=== PATIENT | male | born 1935 | race Caucasian/White ===

== ENCOUNTER 2016-09-14 11:02 | Emergency (ER) | payer MEDICARE, OTHER ==
[2016-09-14] MEDS ORDERED: Sodium Chloride 0.9% 10 ML Syringe FLUSH PRN (11:57)
--- NOTE | 2016-09-14 14:09 | EDM.PDOC ---
ED HISTORY OF PRESENT ILLNESS - General Chief Complaint: Chest Pain Stated Complaint: rapid heart rate Time Seen by Provider: 09/14/16 12:00 Source of Information: Reports: Patient History Limitations: Reports: No limitations - History of Present Illness INITIAL COMMENTS - FREE TEXT/NARRATIVE: Patient has complaints of palpitations this morning. He does have a history of a-fib with multiple cardioversions and an ablation 4 years ago that was effective. EP doctor was Dr. Vazquez in [place] at [place]. He had similar complaints about 1 month ago and had an echo performed. Zio monitor applied which showed some runs of svt as well as v-tach. Ekg's today show alternating sinus rhythm and sinus with pvc's. No complaints of chest pain, SOB that is different than usual - he does have COPD. No nausea, vomiting, headaches, blurry vision. No difficulty with voiding or bowel movements. Symptom Onset Date: 09/14/16 Symptom Onset Time: 08:00 Timing/Duration: Reports: Sudden onset Severity: mild Location, General: Reports: chest Quality: Reports: Same as previous episode, Other (palpitations) Improves with: Reports: None, Other (rhythms convert back and forth from sinus to sinus with pvc's) Worsens with: Reports: None - Related Data Allergies/ADRs: Allergies Allergy/AdvReac Type Severity Reaction Status Date / Time amoxicillin [From Augmentin] AdvReac Diarrhea Verified 09/14/16 11:34 clavulanic acid AdvReac Diarrhea Verified 09/14/16 11:34 [From Augmentin] sulfamethoxazole AdvReac Chills Verified 09/14/16 11:34 [From Bactrim] trimethoprim [From Bactrim] AdvReac Chills Verified 09/14/16 11:34 Home Meds: Home Meds Krill/Om-3/DHA/EPA/Phospho/Ast [[place]-3 Krill Oil 1,000 mg] 1 cap PO DAILY 01/19 [History] Aspirin [Low Dose Aspirin EC] 81 mg PO DAILY 09/14/16 [History] Past Medical History Cardiovascular History: Reports: Afib, Heart Failure, Other (see below) Other Cardiovascular History: MITRAL INSUFFICIENCY. ATRIAL FLUTTER Respiratory History: Reports: None Gastrointestinal History: Reports: Diverticulosis, Other (see below) Other Gastrointestinal History: DIARRHEA IN OCTOBER 2015 FOR 3 WEEKS Genitourinary History: Reports: Prostate disorder, Other (see below) Other Genitourinary History: HYPOGONADISM Musculoskeletal History: Reports: Arthritis Psychiatric History: Reports: None Endocrine/Metabolic History: Reports: None Hematologic History: Reports: Anemia Immunologic History: Reports: None Oncologic (Cancer) History: Reports: Hodgkin's Lymphoma, Lymphoma Other Oncologic History: 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), HAD CHEMO FOR IT Dermatologic History: Reports: None - Past Surgical History HEENT Surgical History: Reports: Cataract surgery Cardiovascular Surgical History: Reports: Cardiac Ablation, Other (see below) Other Cardiovascular Surgeries/Procedures: Ablation 4-5 years ago - Dr. Vazquez GI Surgical History: Reports: None Endocrine Surgical History: Reports: None Musculoskeletal Surgical History: Reports: Other (see below) Other Musculoskeletal Surgeries/Procedures:: R HIP REPAIR FOR FX Oncologic Surgical History: Reports: None Social & Family History - Tobacco Use Smoking Status *Q: Never Smoker Second Hand Smoke Exposure: Yes - Caffeine Use Caffeine Use: Reports: Coffee - Recreational Drug Use Recreational Drug Use: No Drug Use in Last 12 Months: No ED ROS GENERAL - Review of Systems Review Of Systems: See Below Constitutional: Reports: no symptoms HEENT: Reports: No symptoms Respiratory: Reports: No Symptoms Cardiovascular: Reports: Palpitations Endocrine: Reports: no symptoms GI/Abdominal: Reports: No symptoms : Reports: no symptoms Musculoskeletal: Reports: no symptoms Skin: Reports: no symptoms Neurological: Reports: No Symptoms Psychiatric: Reports: No symptoms Hematologic/Lymphatic: Reports: no symptoms Immunologic: Reports: no symptoms ED EXAM, GENERAL - Physical Exam Exam: See Below Exam Limited By: No limitations General Appearance: alert, WD/WN, no apparent distress Eye Exam: bilateral eye: EOMI, PERRL Ears: normal TMs Head: atraumatic, normocephalic Neck: normal inspection Respiratory/Chest: no respiratory distress, lungs clear, normal breath sounds Cardiovascular: normal peripheral pulses, regular rate, rhythm GI/Abdominal: normal bowel sounds, soft, non tender Back Exam: normal inspection Extremities: normal inspection, normal range of motion, normal capillary refill Neurological: alert, oriented, CN II-XII intact, normal cognition, normal gait, normal reflexes, no motor/sensory deficits Psychiatric: normal affect, normal mood Skin Exam: Warm, Dry, Intact Lymphatic: no adenopathy Course - Vital Signs Last Recorded V/S: Last Vital Signs Temp 36.2 C 09/14/16 11:24 Pulse 82 09/14/16 11:24 Resp 18 09/14/16 11:24 BP 129/72 09/14/16 11:24 Pulse Ox 100 09/14/16 11:24 Orthostatic Blood Pressure [ 122/66 Standing] Orthostatic Blood Pressure [ 110/63 Sitting] Orthostatic Blood Pressure [ 136/74 Supine] - Orders/Labs/Meds Orders: Active Orders 24 hr Category Date Time Status Cardiac Monitoring [RC] . DIRECTED Care 09/14/16 11:57 Active EKG 12 Lead [EKG Documentation Completion] [RC] ROUTINE Care 09/14/16 13:51 Ordered EKG Documentation Completion [RC] STAT Care 09/14/16 11:57 Active Chest 2V [CR] Stat Exams 09/14/16 11:58 Taken Sodium Chloride 0.9% [Saline Flush] Med 09/14/16 11:57 Active 10 ml FLUSH ASDIRECTED PRN Saline Lock Insert [OM.PC] Stat Oth 09/14/16 11:57 Ordered Medication Orders Sodium Chloride (Saline Flush) 10 ml FLUSH ASDIRECTED PRN PRN Reason: Keep Vein Open Labs: Laboratory Tests 09/14/16 09/14/16 09/14/16 Range/Units 11:35 11:35 11:35 WBC 12.6 H (4.0-10.0) x10^3/uL RBC 4.11 L (4.5-6.0) x10^6/uL Hgb 12.6 L (14.0-18.0) g/dL Hct 38.7 L (40.0-52.0) % MCV 94.2 H (78.0-93.0) fL MCH 30.7 (26.0-32.0) pg MCHC 32.6 (32.0-36.0) g/dL RDW Coeff of [place] 13.3 (10.0-15.0) % Plt Count 268 (130-400) x10^3/uL Neut % (Auto) 89.4 H (50.0-80.0) % Lymph % (Auto) 3.5 L (25.0-50.0) % [place] % (Auto) 6.1 (2.0-11.0) % Eos % (Auto) 0.8 (0.0-4.0) % Baso % (Auto) 0.2 (0.2-1.2) % PT (10.0-12.8) SEC INR (2.0-3.5) APTT 23.3 L (24.0-36.0) SEC Sodium 143 (136-145) mmol/L Potassium 4.0 (3.5-5.1) mmol/L Chloride 103 (98-107) mmol/L Carbon Dioxide 31 (21-32) mmol/L BUN 28 H (7-18) mg/dL Creatinine 1.3 (0.70-1.30) mg/dL Est Cr Clr Drug Dosing 38.43 mL/min Estimated GFR (MDRD) 53 Glucose 139 H (74-106) mg/dL Calcium 9.3 (8.5-10.1) mg/dL Corrected Calcium 9.14 (8.5-10.1) mg/dL Magnesium (1.8-2.4) mg/dL Total Bilirubin 0.6 (0.2-1.0) mg/dL AST 38 H (15-37) U/L ALT 45 (16-63) U/L Alkaline Phosphatase 74 (46-116) U/L Creatine Kinase 110 (39-308) U/L Creatine Kinase Index 1.0 (0.0-4.0) % CK-MB (CK-2) 1.1 (0.0-3.6) ng/mL Troponin I (<=0.056) ng/mL B-Natriuretic Peptide 798 H (<=450) pg/mL Total Protein 7.9 (6.4-8.2) g/dL Albumin 4.2 (3.4-5.0) g/dL Globulin 3.7 Albumin/Globulin Ratio 1.14 09/14/16 09/14/16 09/14/16 Range/Units 11:35 11:35 11:35 WBC (4.0-10.0) x10^3/uL RBC (4.5-6.0) x10^6/uL Hgb (14.0-18.0) g/dL Hct (40.0-52.0) % MCV (78.0-93.0) fL MCH (26.0-32.0) pg MCHC (32.0-36.0) g/dL RDW Coeff of [place] (10.0-15.0) % Plt Count (130-400) x10^3/uL Neut % (Auto) (50.0-80.0) % Lymph % (Auto) (25.0-50.0) % [place] % (Auto) (2.0-11.0) % Eos % (Auto) (0.0-4.0) % Baso % (Auto) (0.2-1.2) % PT 11.6 (10.0-12.8) SEC INR 1.0 L (2.0-3.5) APTT (24.0-36.0) SEC Sodium (136-145) mmol/L Potassium (3.5-5.1) mmol/L Chloride (98-107) mmol/L Carbon Dioxide (21-32) mmol/L BUN (7-18) mg/dL Creatinine (0.70-1.30) mg/dL Est Cr Clr Drug Dosing mL/min Estimated GFR (MDRD) Glucose (74-106) mg/dL Calcium (8.5-10.1) mg/dL Corrected Calcium (8.5-10.1) mg/dL Magnesium 1.9 (1.8-2.4) mg/dL Total Bilirubin (0.2-1.0) mg/dL AST (15-37) U/L ALT (16-63) U/L Alkaline Phosphatase (46-116) U/L Creatine Kinase (39-308) U/L Creatine Kinase Index (0.0-4.0) % CK-MB (CK-2) (0.0-3.6) ng/mL Troponin I < 0.017 (<=0.056) ng/mL B-Natriuretic Peptide (<=450) pg/mL Total Protein (6.4-8.2) g/dL Albumin (3.4-5.0) g/dL Globulin Albumin/Globulin Ratio Meds: Medications Generic Name Dose Route Start Last Admin Trade Name Freq PRN Reason Stop Dose Admin Sodium Chloride 10 ml 09/14/16 11:57 Saline Flush FLUSH ASDIRECTED PRN Keep Vein Open - Re-Assessments/Exams Free Text/Narrative Re-Assessment/Exam: 09/14/16 14:28 I did review x-ray which was negative for cardio pathology. Does have COPD on x -ray. Discussed case and EKG's with Dr. Erickson from [place]. He advised outpatient follow up and no new prescriptions. Will inform his primary provider of this. Departure - Departure Time of Disposition: 14:10 Disposition: Home, Self-Care 01 Condition: good Clinical Impression: Arrhythmia, ventricular Instructions: Premature Ventricular Contraction Forms: ED Department Discharge Additional Instructions: I did relay your symptoms with Dr. Erickson, the stone carriage operator manufacturing clerk. He recommended outpatient follow up with cardiology and did NOT recommend medication initiation. Follow up with Dr. Springer and cardiology. Of course call us with any questions or concerns. - Problem List & Annotations (1) Arrhythmia, ventricular SNOMED Code(s): 92125283, 282543071 Code(s): I49.9 - CARDIAC ARRHYTHMIA, UNSPECIFIED Status: Acute Priority: Medium Current Visit: Yes - Problem List Review Problem List Initiated/Reviewed/Updated: Yes - My Orders Last 24 Hours: My Active Orders 09/14/16 11:57 Cardiac Monitoring [RC] . DIRECTED EKG Documentation Completion [RC] STAT Sodium Chloride 0.9% [Saline Flush] 10 ml FLUSH ASDIRECTED PRN Saline Lock Insert [OM.PC] Stat 09/14/16 11:58 Chest 2V [CR] Stat 09/14/16 13:51 EKG 12 Lead [EKG Documentation Completion] [RC] ROUTINE - Assessment/Plan Last 24 Hours: My Active Orders 09/14/16 11:57 Cardiac Monitoring [RC] . DIRECTED EKG Documentation Completion [RC] STAT Sodium Chloride 0.9% [Saline Flush] 10 ml FLUSH ASDIRECTED PRN Saline Lock Insert [OM.PC] Stat 09/14/16 11:58 Chest 2V [CR] Stat 09/14/16 13:51 EKG 12 Lead [EKG Documentation Completion] [RC] ROUTINE Assessment:: ventricular arrhythmia Plan: I did relay your symptoms with Dr. Erickson, the stone carriage operator manufacturing clerk. He recommended outpatient follow up with cardiology and did NOT recommend medication initiation. Follow up with Dr. Springer and cardiology. Of course call us with any questions or concerns.
[2016-09-14 15:20] VITALS: BP 136/78
== END 2016-09-14 14:21 | disposition home or self-care (01) ==
LOC: VM.ED 11:02
DX: I49.9 Cardiac arrhythmia, unspecified (principal); I48.91 Unspecified atrial fibrillation; D64.9 Anemia, unspecified; Z88.1 Allergy status to other antibiotic agents; Z88.8 Allergy status to other drugs, medicaments and biological substances
CPT/HCPCS: 36415; 71020; 80053; 82550; 82553; 83735; 83880; 84484; 85025; 85610; 85730; 93005; 99284-GF; 99285

== ENCOUNTER 2019-03-14 10:53 | Inpatient (IN) | payer MEDICARE, OTHER ==
--- NOTE | 2019-03-14 12:02 | PCM.HP.2 ---
H&P History of Present Illness - General Date of Service: 03/14/19 Admit Problem/Dx: Admission Diagnosis/Problem Admission Diagnosis/Problem Aspiration pneumonia Source of Information: Patient, Family () History Limitations: Reports: No Limitations - History of Present Illness Initial Comments - Free Text/Narative: Mr. Vanegas is an 83 yo male who presented to clinic today for evaluation of a cough x 4-5 days. Cough is productive of greenish sputum and is associated with chest pain with coughing. He has had some nasal congestion and pressure. He has also felt subjectively feverish but has not checked his temperature at home. He has not been short of breath. He has not been eating or drinking well at all and has had significant generalized weakness. He has not had any falls. His also notes that he has had episodes of confusion as well. He has talked about things from the remote past and has been confused about which season it is. He states that he has had pneumonia before and these symptoms are similar. His was also recently sick with pneumonia. His does note that he has been having more trouble with swallowing again over the past few weeks. He has been evaluated for swallowing issues in the past but those essentially were self resolving. He had been doing well for quite some time but has had more trouble again the past few weeks. He has been choking/coughing on liquids primarily. - Related Data Allergies/Adverse Reactions: Allergies Allergy/AdvReac Type Severity Reaction Status Date / Time amoxicillin [From Augmentin] AdvReac Diarrhea Verified 09/14/16 11:34 clavulanic acid AdvReac Diarrhea Verified 09/14/16 11:34 [From Augmentin] sulfamethoxazole AdvReac Chills Verified 09/14/16 11:34 [From Bactrim] trimethoprim [From Bactrim] AdvReac Chills Verified 09/14/16 11:34 Home Medications: Home Meds Aspirin [Low Dose Aspirin EC] 81 mg PO DAILY 09/14/16 [History] Krill/[place]-3/Dha/Epa/Lipids [Krill Oil 300 mg Softgel] 1 cap PO DAILY 03/14/19 [History] Past Medical History HEENT History: Reports: None Cardiovascular History: Reports: Afib, Heart Failure, Other (See Below) Other Cardiovascular History: MITRAL INSUFFICIENCY. ATRIAL FLUTTER Respiratory History: Reports: None Gastrointestinal History: Reports: Diverticulosis, Other (See Below) Other Gastrointestinal History: DIARRHEA IN OCTOBER 2015 FOR 3 WEEKS Genitourinary History: Reports: Prostate Disorder, Other (See Below) Other Genitourinary History: HYPOGONADISM Musculoskeletal History: Reports: Arthritis Neurological History: Reports: Neuropathy, Peripheral Psychiatric History: Reports: None Endocrine/Metabolic History: Reports: None Hematologic History: Reports: Anemia Immunologic History: Reports: None Oncologic (Cancer) History: Reports: Hodgkin's Lymphoma, Lymphoma Other Oncologic History: 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), HAD CHEMO FOR IT Dermatologic History: Reports: None - Past Surgical History HEENT Surgical History: Reports: Cataract Surgery Cardiovascular Surgical History: Reports: Cardiac Ablation, Other (See Below) Endocrine Surgical History: Reports: None Musculoskeletal Surgical History: Reports: Other (See Below) Oncologic Surgical History: Reports: None Social & Family History - Family History Oncologic: Reports: Prostate, Other (See Below) (gastric) - Tobacco Use Smoking Status *Q: Never Smoker Second Hand Smoke Exposure: No - Caffeine Use Caffeine Use: Reports: Coffee - Alcohol Use Alcohol Use History: No Alcohol Use Frequency: Rarely (on holidays) - Recreational Drug Use Recreational Drug Use: No - Living Situation & Occupation Living situation: Reports: , with Significant Other 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 Denies: Shortness of Breath Cardiovascular: Reports: No Symptoms Gastrointestinal: Reports: No Symptoms Genitourinary: Reports: No Symptoms Musculoskeletal: Reports: No Symptoms Skin: Reports: No Symptoms Psychiatric: Reports: Confusion Neurological: Reports: Confusion Exam - Exam Exam: See Below - Vital Signs Vital Signs: Last Vital Signs Temp 36.6 C 03/14/19 11:07 Pulse 91 03/14/19 11:07 Resp 16 03/14/19 11:07 BP 130/68 03/14/19 11:07 Pulse Ox 94 L 03/14/19 11:07 Weight: 63.639 kg - Exam General: Alert, Oriented, Cooperative HEENT: Conjunctiva Clear, EACs Clear, Mucosa Moist & [place], Posterior Pharynx Clear, Pupils Equal, Pupils Reactive, TMs Clear Neck: Supple, Trachea Midline. No: Lymphadenopathy, Thyromegaly Lungs: Clear to Auscultation (everywhere except the right lower lobe), Normal Respiratory Effort, Crackles (right lower lobe) Cardiovascular: Regular Rate, Regular Rhythm, Normal S1, Normal S2 GI/Abdominal Exam: Normal Bowel Sounds, Soft, Non-Tender, No Organomegaly, No Distention, No Mass Extremities: Non-Tender, No Pedal Edema, Normal Capillary Refill Peripheral Pulses: 2+: Radial (L), Radial (R) Skin: Warm, Dry, Intact - Problem List (1) Sepsis SNOMED Code(s): 53769718 ICD Code: A41.9 - SEPSIS, UNSPECIFIED ORGANISM Status: Acute Current Visit: Yes Qualifiers: Sepsis type: sepsis due to unspecified organism Sepsis acute organ dysfunction status: without acute organ dysfunction Qualified Code(s): A41.9 - Sepsis, unspecified organism (2) Aspiration pneumonia SNOMED Code(s): 124417386 ICD Code: J69.0 - PNEUMONITIS DUE TO INHALATION OF FOOD AND VOMIT Status: Acute Current Visit: Yes Qualifiers: Aspiration pneumonia type: due to gastric secretions Laterality: right Lung location: lower lobe of lung Qualified Code(s): J69.0 - Pneumonitis due to inhalation of food and vomit (3) Dysphagia SNOMED Code(s): 76858811, 486571373 ICD Code: R13.10 - DYSPHAGIA, UNSPECIFIED Status: Chronic Current Visit: Yes Qualifiers: Dysphagia type: pharyngoesophageal phase Qualified Code(s): R13.14 - Dysphagia, pharyngoesophageal phase (4) Peripheral neuropathy SNOMED Code(s): 135838147 ICD Code: G62.9 - POLYNEUROPATHY, UNSPECIFIED Status: Chronic Current Visit: Yes Qualifiers: Peripheral neuropathy type: polyneuropathy, unspecified Qualified Code(s): G62.9 - Polyneuropathy, unspecified (5) Generalized weakness SNOMED Code(s): 61948729 ICD Code: R53.1 - WEAKNESS Status: Acute Current Visit: Yes Problem List Initiated/Reviewed/Updated: Yes Orders Last 24hrs: Active Orders 24 hr Category Date Time Status Patient Status [ADT] Routine ADT 03/14/19 11:26 Ordered Dietary Supplements [RC] BIDMEALS Care 03/14/19 11:25 Ordered Notify Provider Vital Signs [RC] ASDIRECTED Care 03/14/19 11:29 Ordered Oxygen Therapy [RC] PRN Care 03/14/19 11:26 Ordered VTE/DVT Education [RC] PER UNIT ROUTINE Care 03/14/19 11:26 Ordered Vital Signs [RC] Q4H Care 03/14/19 11:26 Ordered PT Evaluation and Treatment [CONS] Routine Cons 03/14/19 11:26 Ordered STONEWORKING BELT SANDER Evaluation and Treatment [CONS] Routine Cons 03/14/19 11:26 Ordered Nothing per Oral Now Diet [DIET] Diet 03/14/19 Lunch Ordered BASIC METABOLIC PANEL,BMP [CHEM] Routine Lab 03/15/19 05:11 Ordered CBC WITH AUTO DIFF [HEME] Routine Lab 03/15/19 05:11 Ordered Ampicillin/Sulbactam Na [Unasyn] Med 03/14/19 11:30 Ordered 1.5 gm IV Q6H Aspirin [Halfprin] Med 03/15/19 08:00 Ordered 81 mg PO DAILY Enoxaparin [Lovenox] Med 03/15/19 08:00 Ordered 40 mg SUBCUT DAILY Lactated Ringers @ 100 MLS/HR(1,000ml) Med 03/14/19 11:45 Ordered Lactated Ringers [Ringers, Lactated] 1,000 ml IV ASDIRECTED Resuscitation Status Routine Resus Stat 03/14/19 11:26 Ordered Medication Orders Ampicillin Sodium/Sulbactam Sodium (Unasyn) 1.5 gm IV Q6H AARON Aspirin (Halfprin) 81 mg PO DAILY AARON Enoxaparin Sodium (Lovenox) 40 mg SUBCUT DAILY AARON Lactated Ringer's (Ringers, Lactated) 1,000 mls @ 100 mls/hr IV ASDIRECTED [facility] Assessment/Plan Comment:: 83 yo male admitted with sepsis secondary to aspiration pneumonia. #1 Sepsis #2 Aspiration Pneumonia - No other s/s of infection and has clear pneumonia on x-ray as source of sepsis. - Meets sepsis criteria with tachycardia and leukocytosis. - Initial lactate normal. Will not repeat. - No bolus indicated in the absence of vital sign instability or JOSE ANTONIO. Will start LR @ 100 cc/hr. - Blood cultures pending. - Given the absence of any underlying lung history nor any healthcare exposures , will treat empirically with unasyn. - If worsening or not improving, will broaden to zosyn. - Note his amoxicillin and augmentin allergies but the reaction is diarrhea so is not a true allergy. - Recheck labs in the morning. #3 Dysphagia - Speech therapy evaluation ordered. - Given this is able to be performed in the next 1 hour, will keep him NPO until this is completed. Then his diet can be ordered as recommended by speech therapy. #4 Peripheral Neuropathy #5 Generalized Weakness - PT eval and treatment. Patient is admitted to acute status given his CURB-65 score of 3, his meeting sepsis criteria, and the associated expectation he will be admitted for at least 2 midnights for IV antibiotics. Will treat with Unasyn, IV fluids, and do speech and PT evaluations. Lovenox for VTE prophylaxis. Patient is DNR/DNI - discussed on admission. - Mortality Measure Prognosis:: Good
[2019-03-14] MEDS: Ampicillin/Sulbactam Na 1.5 GM Vial IV SCH ×3 (12:53→23:00)
[2019-03-14] MEDS: Lactated Ringers 1,000 ML IV SCH (13:33)
[2019-03-15] MEDS: Lactated Ringers 1,000 ML IV SCH (00:37)
[2019-03-15] MEDS: Ampicillin/Sulbactam Na 1.5 GM Vial IV SCH (04:48)
[2019-03-15 07:06] LABS: CHLORIDE,CL 100 mmol/L (54-184); SODIUM,NA 139 mmol/L (69-191)
[2019-03-15 07:08] LABS: ANION GAP 12.8 mmol/L (10-20)
[2019-03-15] MEDS: Enoxaparin 40 MG/0.4 ML Syringe SUBCUT SCH (08:13)
[2019-03-15] MEDS: Aspirin 81 MG Tab.EC PO SCH (08:14)
--- NOTE | 2019-03-15 08:28 | PCM.PN ---
- General Info Date of Service: 03/15/19 Subjective Update: 83 yo male hospital day #2 admitted with sepsis secondary to aspiration pneumonia. Patient is feeling slightly improved today. He is still coughing and his cough is still productive of thick, dark green sputum. His chest pain is improved. No shortness of breath or fever. His appetite is still poor but he anticipates this will improve. He is irritated by his urinary frequency with holding of his krill oil but is not otherwise concerned about this. - Review of Systems General: Reports: No Symptoms HEENT: Reports: No Symptoms Pulmonary: Reports: Pleuritic Chest Pain, Cough Cardiovascular: Reports: No Symptoms Gastrointestinal: Reports: Decreased Appetite Genitourinary: Reports: Frequency Musculoskeletal: Reports: No Symptoms Skin: Reports: No Symptoms - Patient Data Vitals - Most Recent: Last Vital Signs Temp 35.9 C 03/15/19 05:23 Pulse 87 03/15/19 05:23 Resp 20 03/15/19 05:23 BP 127/68 03/15/19 05:23 Pulse Ox 95 03/15/19 05:23 Weight - Most Recent: 63.639 kg I&O - Last 24 Hours: Intake & Output 03/14/19 03/15/19 03/15/19 22:59 06:59 14:59 Intake Total 816 1380 Output Total 100 900 Balance 716 480 Lab Results Last 24 Hours: Laboratory Results - last 24 hr 03/15/19 03/15/19 Range/Units 06:18 06:18 WBC 11.4 H (4.0-10.0) x10^3/uL RBC 3.56 L (4.5-6.0) x10^6/uL Hgb 10.9 L D (14.0-18.0) g/dL Hct 32.0 L (40.0-52.0) % MCV 89.9 D (78.0-93.0) fL MCH 30.6 (26.0-32.0) pg MCHC 34.1 (32.0-36.0) g/dL RDW Coeff of [place] 12.9 (10.0-15.0) % Plt Count 285 (130-400) x10^3/uL Add Manual Diff Yes Neutrophils % (Manual) 78 (50-80) % Band Neutrophils % 10 H (0-6) % Lymphocytes % (Manual) 6 L (25-50) % Monocytes % (Manual) 5 (2-11) % Blast Cells % 1 H (0) % Platelet Estimate Adequate Macrocytosis 1+ slight H Spherocytes 1+ slight H Sodium 139 (69-191) mmol/L Potassium 3.8 (1.5-9.9) mmol/L Chloride 100 (54-184) mmol/L Carbon Dioxide 30 (21-32) mmol/L Anion Gap 12.8 (10-20) mmol/L BUN 15 (7-18) mg/dL Creatinine 0.8 (0.70-1.30) mg/dL Est Cr Clr Drug Dosing 64.08 mL/min Estimated GFR (MDRD) > 60 Glucose 94 (74-106) mg/dL Calcium 8.1 L (8.5-10.1) mg/dL Med Orders - Current: Current Medications Ampicillin Sodium/Sulbactam Sodium (Unasyn) 1.5 gm IV Q6H [facility] Last Admin: 03/15/19 04:48 Dose: 1.5 gm Aspirin (Halfprin) 81 mg PO DAILY [facility] Last Admin: 03/15/19 08:14 Dose: 81 mg Enoxaparin Sodium (Lovenox) 40 mg SUBCUT DAILY [facility] Last Admin: 03/15/19 08:13 Dose: 40 mg Lactated Ringer's (Ringers, Lactated) 1,000 mls @ 100 mls/hr IV ASDIRECTED [facility] Last Admin: 03/15/19 00:37 Dose: 100 mls/hr - Exam General: Alert, Oriented, Cooperative, No Acute Distress HEENT: Mucous Membr. Moist/[place] Neck: Supple, Trachea Midline, No Thyromegaly. No: Lymphadenopathy Lungs: Clear to Auscultation (all other lung mckenzie besides the RLL), Normal Respiratory Effort, Crackles (RLL) Cardiovascular: Regular Rate, Regular Rhythm, No Murmurs GI/Abdominal Exam: Normal Bowel Sounds, Soft, Non-Tender, No Organomegaly, No Distention, No Mass Extremities: Non-Tender, No Pedal Edema, Normal Capillary Refill Peripheral Pulses: 2+: Radial (L), Radial (R) Skin: Warm, Dry, Intact - Problem List & Annotations (1) Sepsis SNOMED Code(s): 35363282 Code(s): A41.9 - SEPSIS, UNSPECIFIED ORGANISM Status: Acute Current Visit : Yes Qualifiers: Sepsis type: sepsis due to unspecified organism Sepsis acute organ dysfunction status: without acute organ dysfunction Qualified Code(s): A41.9 - Sepsis, unspecified organism (2) Aspiration pneumonia SNOMED Code(s): 870436267 Code(s): J69.0 - PNEUMONITIS DUE TO INHALATION OF FOOD AND VOMIT Status: Acute Current Visit: Yes Qualifiers: Aspiration pneumonia type: due to gastric secretions Laterality: right Lung location: lower lobe of lung Qualified Code(s): J69.0 - Pneumonitis due to inhalation of food and vomit (3) Dysphagia SNOMED Code(s): 50990862, 024291566 Code(s): R13.10 - DYSPHAGIA, UNSPECIFIED Status: Chronic Current Visit: Yes Qualifiers: Dysphagia type: pharyngoesophageal phase Qualified Code(s): R13.14 - Dysphagia, pharyngoesophageal phase (4) Peripheral neuropathy SNOMED Code(s): 516504891 Code(s): G62.9 - POLYNEUROPATHY, UNSPECIFIED Status: Chronic Current Visit: Yes Qualifiers: Peripheral neuropathy type: polyneuropathy, unspecified Qualified Code(s): G62.9 - Polyneuropathy, unspecified (5) Generalized weakness SNOMED Code(s): 74806122 Code(s): R53.1 - WEAKNESS Status: Acute Current Visit: Yes - Problem List Review Problem List Initiated/Reviewed/Updated: Yes - My Orders Last 24 Hours: My Active Orders 03/14/19 11:25 Dietary Supplements [RC] 03/14/19 11:26 Patient Status [ADT] Routine Oxygen Therapy [RC] PRN VTE/DVT Education [RC] PER UNIT ROUTINE Vital Signs [RC] Q4H PT Evaluation and Treatment [CONS] Routine 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 Passed his swallow evaluation yesterday. Sepsis is resolved. He is doing much better but has not been out of bed yet. - Plan Plan:: #1 Sepsis, resolved #2 Aspiration Pneumonia - Met sepsis criteria on admission with tachycardia and leukocytosis. No longer meets criteria. - Initial lactate normal. Blood cultures negative thus far. - Since he can do a regular diet, will d/c IV fluids and monitor oral intake today. - Continue unasyn. Will plan for a full 48 hours of IV therapy before transitioning to orals. - If worsening or not improving, will broaden to zosyn. - Recheck labs in the morning. #3 Dysphagia - Speech therapy cleared for regular diet but recommended formal video swallow, which is scheduled for Wednesday. - Diet changed to regular. #4 Peripheral Neuropathy #5 Generalized Weakness - PT eval today. It is possible he may need swing bed after his acute stay. Patient will remain on acute status today - anticipate transition to swing bed vs dismissal home by Wednesday. No changes to his plan of care today. Lovenox for VTE prophylaxis. Patient is DNR/DNI - discussed on admission.
[2019-03-15] MEDS ORDERED: Sodium Chloride 0.9% 10 ML Syringe IV PRN (11:06)
[2019-03-15] MEDS: Ampicillin/Sulbactam Na 1.5 GM in Sodium Chloride 0.9% 100 ML IV SCH ×3 (11:55→22:54)
[2019-03-16 02:26] VITALS: PULSE 83
[2019-03-16] MEDS: Ampicillin/Sulbactam Na 1.5 GM in Sodium Chloride 0.9% 100 ML IV SCH (04:43)
[2019-03-16 05:19] VITALS: BP 123/64
--- NOTE | 2019-03-16 06:38 | PCM.DCSUM1 ---
Discharge Summary - Hospital Course Brief History: Mr. Vanegas is an 83 yo male who was admitted on 03/14 for sepsis secondary to aspiration pneumonia after presenting to clinic for evaluation of 4-5 days of cough. - Discharge Data Discharge Date: 03/16/19 Discharge Disposition: Home, Self-Care 01 Condition: Good - Referral to Home Health Primary Care Physician: Heather Springer MD - Discharge Diagnosis/Problem(s) (1) Sepsis SNOMED Code(s): 95136209 ICD Code: A41.9 - SEPSIS, UNSPECIFIED ORGANISM Status: Acute Current Visit: Yes Qualifiers: Sepsis type: sepsis due to unspecified organism Sepsis acute organ dysfunction status: without acute organ dysfunction Qualified Code(s): A41.9 - Sepsis, unspecified organism (2) Aspiration pneumonia SNOMED Code(s): 381835293 ICD Code: J69.0 - PNEUMONITIS DUE TO INHALATION OF FOOD AND VOMIT Status: Acute Current Visit: Yes Qualifiers: Aspiration pneumonia type: due to gastric secretions Laterality: right Lung location: lower lobe of lung Qualified Code(s): J69.0 - Pneumonitis due to inhalation of food and vomit (3) Dysphagia SNOMED Code(s): 01848706, 200942677 ICD Code: R13.10 - DYSPHAGIA, UNSPECIFIED Status: Chronic Current Visit: Yes Qualifiers: Dysphagia type: pharyngoesophageal phase Qualified Code(s): R13.14 - Dysphagia, pharyngoesophageal phase (4) Peripheral neuropathy SNOMED Code(s): 775168618 ICD Code: G62.9 - POLYNEUROPATHY, UNSPECIFIED Status: Chronic Current Visit: Yes Qualifiers: Peripheral neuropathy type: polyneuropathy, unspecified Qualified Code(s): G62.9 - Polyneuropathy, unspecified (5) Generalized weakness SNOMED Code(s): 35922625 ICD Code: R53.1 - WEAKNESS Status: Acute Current Visit: Yes - Patient Summary/Data Operative Procedure(s) Performed: none Complications: none Consults: Consultations 03/14/19 11:26 PT Evaluation and Treatment [CONS] Routine 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 He met sepsis criteria on admission with tachycardia and leukocytosis. He was treated with IV fluids and IV antibiotics. He quickly improved and was no longer meeting sepsis criteria as of yesterday morning. He passed his bedside swallow evaluation and was able to eat a regular diet. They do recommend a video swallow as an outpatient for further evaluation and this is scheduled for Wednesday. Patient has been instructed to cut his food small and chew well before swallowing until that study is done. He was evaluated by physical therapy yesterday and he did much better than expected; therefore, he will not require any ongoing therapies. His labs have been progressively improving and his vital signs have remained stable. Blood cultures show no growth to date. Therefore, it is felt he is prepared for discharge home today. He will follow-up in clinic in 1 week and will have his swallow evaluation early next week. - Patient Instructions Diet: Usual Diet as Tolerated Activity: As Tolerated - Discharge Plan *PRESCRIPTION DRUG MONITORING PROGRAM REVIEWED*: No *COPY OF PRESCRIPTION DRUG MONITORING REPORT IN PATIENT JESSICA: No Prescriptions/Med Rec: Amoxicillin/Potassium Clav [Augmentin 875-125 Tablet] 1 each PO BID #9 tablet Home Medications: Home Meds Aspirin [Low Dose Aspirin EC] 81 mg PO DAILY 09/14/16 [History] Krill/[place]-3/Dha/Epa/Lipids [Krill Oil 300 mg Softgel] 1 cap PO DAILY 03/14/19 [History] Amoxicillin/Potassium Clav [Augmentin 875-125 Tablet] 1 each PO BID #9 tablet [Rx] - Discharge Summary/Plan Comment DC Time >30 min.: No - General Info Date of Service: 03/16/19 Subjective Update: 83 yo male hospital day #3 admitted with sepsis secondary to aspiration pneumonia. No overnight events. He slept well and is doing well this morning. He had less frequent voids overnight but still more than usual; he is looking forward to resuming his krill oil. He is still coughing but this remains productive. He denies any chest pain or shortness of breath. He has been eating well apart from supper last night as this was steak that was difficult for him to chew. He has not had any vomiting or diarrhea. - Review of Systems General: Reports: No Symptoms HEENT: Reports: No Symptoms Pulmonary: Reports: Cough Cardiovascular: Reports: No Symptoms Gastrointestinal: Reports: No Symptoms Genitourinary: Reports: No Symptoms Musculoskeletal: Reports: No Symptoms Skin: Reports: No Symptoms Neurological: Reports: No Symptoms - Patient Data Vitals - Most Recent: Last Vital Signs Temp 36.4 C 03/16/19 05:17 Pulse 83 03/16/19 05:17 Resp 17 03/16/19 05:17 BP 123/64 03/16/19 05:17 Pulse Ox 95 03/16/19 05:17 Weight - Most Recent: 63.639 kg I&O - Last 24 hours: Intake & Output 03/15/19 03/15/19 03/16/19 14:59 22:59 06:59 Intake Total 200 400 Output Total 400 Balance 200 0 Lab Results - Last 24 hrs: Laboratory Results - last 24 hr 03/15/19 03/15/19 Range/Units 06:18 06:18 WBC 11.4 H (4.0-10.0) x10^3/uL RBC 3.56 L (4.5-6.0) x10^6/uL Hgb 10.9 L D (14.0-18.0) g/dL Hct 32.0 L (40.0-52.0) % MCV 89.9 D (78.0-93.0) fL MCH 30.6 (26.0-32.0) pg MCHC 34.1 (32.0-36.0) g/dL RDW Coeff of [place] 12.9 (10.0-15.0) % Plt Count 285 (130-400) x10^3/uL Add Manual Diff Yes Neutrophils % (Manual) 78 (50-80) % Band Neutrophils % 10 H (0-6) % Lymphocytes % (Manual) 6 L (25-50) % Monocytes % (Manual) 5 (2-11) % Blast Cells % 1 H (0) % Platelet Estimate Adequate Macrocytosis 1+ slight H Spherocytes 1+ slight H Sodium 139 (69-191) mmol/L Potassium 3.8 (1.5-9.9) mmol/L Chloride 100 (54-184) mmol/L Carbon Dioxide 30 (21-32) mmol/L Anion Gap 12.8 (10-20) mmol/L BUN 15 (7-18) mg/dL Creatinine 0.8 (0.70-1.30) mg/dL Est Cr Clr Drug Dosing 64.08 mL/min Estimated GFR (MDRD) > 60 Glucose 94 (74-106) mg/dL Calcium 8.1 L (8.5-10.1) mg/dL Med Orders - Current: Current Medications Aspirin (Halfprin) 81 mg PO DAILY [facility] Last Admin: 03/15/19 08:14 Dose: 81 mg Enoxaparin Sodium (Lovenox) 40 mg SUBCUT DAILY [facility] Last Admin: 03/15/19 08:13 Dose: 40 mg Ampicillin Sodium/Sulbactam (Sodium 1.5 gm/ Sodium Chloride) 100 mls @ 200 mls/ hr IV Q6H [facility] Last Admin: 03/16/19 04:43 Dose: 200 mls/hr Sodium Chloride (Saline Flush) 10 ml IV ASDIRECTED PRN PRN Reason: Keep Vein Open Last Admin: 03/15/19 22:55 Dose: 10 ml Discontinued Medications Ampicillin Sodium/Sulbactam Sodium (Unasyn) 1.5 gm IV Q6H [facility] Last Admin: 03/15/19 04:48 Dose: 1.5 gm Lactated Ringer's (Ringers, Lactated) 1,000 mls @ 100 mls/hr IV ASDIRECTED [facility] Last Admin: 03/15/19 00:37 Dose: 100 mls/hr - Exam General: Reports: Alert, Oriented, Cooperative, No Acute Distress HEENT: Reports: Mucous Membr. Moist/[place] Neck: Reports: Supple, Trachea Midline, No Thyromegaly. Denies: Lymphadenopathy Lungs: Reports: Clear to Auscultation (all other lung mckenzie besides the RLL), Normal Respiratory Effort, Crackles (RLL) Cardiovascular: Reports: Regular Rate, Regular Rhythm, No Murmurs GI/Abdominal Exam: Normal Bowel Sounds, Soft, Non-Tender, No Organomegaly, No Distention, No Mass Extremities: Normal Inspection, Non-Tender, No Pedal Edema, Normal Capillary Refill Skin: Reports: Warm, Dry, Intact
[2019-03-16 06:48] LABS: ANION GAP 11.9 mmol/L (10-20); CHLORIDE,CL 100 mmol/L (54-184); SODIUM,NA 139 mmol/L (69-191)
[2019-03-16] MEDS: Aspirin 81 MG Tab.EC PO SCH (07:50)
[2019-03-16] MEDS: Enoxaparin 40 MG/0.4 ML Syringe SUBCUT SCH (07:50)
== END 2019-03-16 08:50 | disposition home or self-care (01) | DRG 871 ==
LOC: VM.MS 11:00
PROVIDERS: ADMIT Family Medicine; ATTEND Family Medicine
DX: A41.9 Sepsis, unspecified organism (principal); J69.0 Pneumonitis due to inhalation of food and vomit; I48.92 Unspecified atrial flutter; R13.14 Dysphagia, pharyngoesophageal phase; G62.9 Polyneuropathy, unspecified; Z66 Do not resuscitate; I48.91 Unspecified atrial fibrillation; I50.9 Heart failure, unspecified; I34.0 Nonrheumatic mitral (valve) insufficiency; M19.90 Unspecified osteoarthritis, unspecified site; D64.9 Anemia, unspecified; E29.1 Testicular hypofunction; Z85.72 Personal history of non-Hodgkin lymphomas; Z98.49 Cataract extraction status, unspecified eye; Z88.1 Allergy status to other antibiotic agents; Z88.2 Allergy status to sulfonamides; Z79.82 Long term (current) use of aspirin; Z79.899 Other long term (current) drug therapy
CPT/HCPCS: 36415; 80048; 85025; 92526-GN; 92610-GN; 97161-GP; A9270-GY; J0295; J1650; J7050; J7120

== ENCOUNTER 2020-04-18 19:54 | Emergency (ER) | payer MEDICARE, OTHER ==
[2020-04-18] MEDS ORDERED: Acetaminophen/HYDROcodone 325-5 MG Tab PO ONE (21:39)
[2020-04-18 21:47] LABS: CHLORIDE,CL 102 mmol/L (98-107); SODIUM,NA 141 mmol/L (136-145)
[2020-04-18 21:48] LABS: ANION GAP 13.1 mmol/L (10-20)
--- NOTE | 2020-04-18 22:14 | EDM.PDOC ---
ED HPI GENERAL MEDICAL PROBLEM - General Chief Complaint: Back Pain or Injury Stated Complaint: FALL-BACK PAIN Time Seen by Provider: 04/18/20 20:39 Source of Information: Reports: Patient, Family - History of Present Illness INITIAL COMMENTS - FREE TEXT/NARRATIVE: Carson is an 84 y/o male who was brought to the ER by his family after he complained of back pain. He fell tonight at home and missed the chair when he was trying to sit down. He also fell a few days ago when he slipped on the ice getting out of his pickup. He took a Tylenol at home, but it has not helped his pain He reports the pain is in his lower back region. - Related Data Allergies Allergy/AdvReac Type Severity Reaction Status Date / Time amoxicillin [From Augmentin] AdvReac Diarrhea Verified 09/14/16 11:34 clavulanic acid AdvReac Diarrhea Verified 09/14/16 11:34 [From Augmentin] sulfamethoxazole AdvReac Chills Verified 09/14/16 11:34 [From Bactrim] trimethoprim [From Bactrim] AdvReac Chills Verified 09/14/16 11:34 Home Meds: Home Meds Aspirin [Low Dose Aspirin EC] 81 mg PO DAILY 09/14/16 [History] Krill/[place]-3/Dha/Epa/Lipids [Krill Oil 300 mg Softgel] 1 cap PO DAILY 03/14/19 [History] Amoxicillin/Potassium Clav [Augmentin 875-125 Tablet] 1 each PO BID #9 tablet 03/16/19 [Rx] Past Medical History HEENT History: Reports: None Cardiovascular History: Reports: Afib, Heart Failure, Other (See Below) Other Cardiovascular History: MITRAL INSUFFICIENCY. ATRIAL FLUTTER Respiratory History: Reports: None Gastrointestinal History: Reports: Diverticulosis, Other (See Below) Other Gastrointestinal History: DIARRHEA IN OCTOBER 2015 FOR 3 WEEKS Genitourinary History: Reports: Prostate Disorder, Other (See Below) Other Genitourinary History: HYPOGONADISM Musculoskeletal History: Reports: Arthritis Neurological History: Reports: Neuropathy, Peripheral Psychiatric History: Reports: None Endocrine/Metabolic History: Reports: None Hematologic History: Reports: Anemia Immunologic History: Reports: None Oncologic (Cancer) History: Reports: Hodgkin's Lymphoma, Lymphoma Other Oncologic History: 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), HAD CHEMO FOR IT Dermatologic History: Reports: None - Past Surgical History HEENT Surgical History: Reports: Cataract Surgery Cardiovascular Surgical History: Reports: Cardiac Ablation Social & Family History - Family History Oncologic: Reports: Prostate, Other (See Below) (gastric) - Caffeine Use Caffeine Use: Reports: Coffee - Living Situation & Occupation Living situation: Reports: , with Significant Other 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) Review of Systems - Review of Systems Review Of Systems: See Below Constitutional: Reports: No Symptoms Eyes: Reports: No Symptoms Ears: Reports: No Symptoms Nose: Reports: No Symptoms Mouth/Throat: Reports: No Symptoms Respiratory: Reports: No Symptoms Cardiovascular: Reports: No Symptoms GI/Abdominal: Reports: No Symptoms Genitourinary: Reports: No Symptoms Musculoskeletal: Reports: No Symptoms, Back Pain Skin: Reports: No Symptoms Neurological: Reports: No Symptoms Psychiatric: Reports: No Symptoms ED EXAM, GENERAL - Physical Exam Exam: See Below General Appearance: Alert, WD/WN, Other (Elderly male, NAD. Impatient with staff because he has been waiting.) Ears: Hearing Grossly Normal Nose: Normal Inspection Throat/Mouth: Normal Voice Head: Atraumatic, Normocephalic Neck: Normal Inspection, Supple Respiratory/Chest: No Respiratory Distress, Lungs Clear Cardiovascular: Normal Peripheral Pulses, Regular Rate, Rhythm GI/Abdominal: Normal Bowel Sounds, Soft (Male) Exam: Deferred Rectal (Males) Exam: Deferred Back Exam: Vertebral Tenderness (lower lumabr and thoracic region) Extremities: Normal Inspection, No Pedal Edema, Normal Capillary Refill Neurological: Alert, Oriented, CN II-XII Intact Skin Exam: Warm, Dry, Intact, Normal Color #1 Interpretation EKG Date: 04/18/20 Time: 09:44 Rhythm: NSR Rate (Beats/Min): 73 P-Wave: Present QRS: Normal ST-T: Normal QT: Normal Course - Vital Signs Text/Narrative:: 2099 The patient was seen by the OFFICE PROFESSIONAL. Hydrocodone/APAP 1 tab ordered for pain. Xrays of spine ordered. Also ordered labs to rule out causes of frequent falls. 5 XRays reviewed and no acute findings noted. EKG stable. 2230 UA neg, results reviewed. Results and xray findings discussed with the patient and his family. Will send him home tonight. Offered admission for weakness to get PT eval, but family is comfortable taking him home and then following up with PCP for further PT referral. Discharge instructions were given and the patient left the ER in stable condition. - Orders/Labs/Meds Orders: Active Orders 24 hr Category Date Time Status EKG Documentation Completion [RC] STAT Care 04/18/20 20:44 Active Lumbar Spine 2 or 3V [CR] Stat Exams 04/18/20 20:44 Taken Thoracic Spine 2V [CR] Stat Exams 04/18/20 20:44 Taken Labs: Laboratory Tests 04/18/20 04/18/20 04/18/20 Range/Units 21:19 21:19 22:15 WBC 10.1 H (4.0-10.0) x10^3/uL RBC 3.96 L (4.5-6.0) x10^6/uL Hgb 12.0 L (14.0-18.0) g/dL Hct 37.5 L (40.0-52.0) % MCV 94.7 H D (78.0-93.0) fL MCH 30.3 (26.0-32.0) pg MCHC 32.0 (32.0-36.0) g/dL RDW Coeff of [place] 14.3 (10.0-15.0) % Plt Count 215 D (130-400) x10^3/uL Neut % (Auto) 83.3 H (50.0-80.0) % Lymph % (Auto) 8.8 L (25.0-50.0) % [place] % (Auto) 7.0 (2.0-11.0) % Eos % (Auto) 0.7 (0.0-4.0) % Baso % (Auto) 0.2 (0.2-1.2) % Sodium 141 (136-145) mmol/L Potassium 4.1 (3.5-5.1) mmol/L Chloride 102 (98-107) mmol/L Carbon Dioxide 30 (21-32) mmol/L Anion Gap 13.1 (10-20) mmol/L BUN 26 H (7-18) mg/dL Creatinine 1.1 (0.70-1.30) mg/dL Est Cr Clr Drug Dosing TNP Estimated GFR (MDRD) > 60 Glucose 125 H (74-106) mg/dL Calcium 8.9 (8.5-10.1) mg/dL Corrected Calcium 9.46 (8.5-10.1) mg/dL Total Bilirubin 0.8 (0.2-1.0) mg/dL AST 17 (15-37) U/L ALT 26 (16-63) U/L Alkaline Phosphatase 66 (46-116) U/L Total Protein 7.3 (6.4-8.2) g/dL Albumin 3.3 L (3.4-5.0) g/dL Globulin 4.0 Albumin/Globulin Ratio 0.83 Urine Color Dark yellow H (YELLOW) Urine Appearance Clear (CLEAR) Urine pH 5.5 (5.0-8.0) Ur Specific [place] >=1.030 Urine Protein 30 H (NEGATIVE) mg/dL Urine Glucose (UA) Negative (NEGATIVE) mg/dL Urine Ketones Negative (NEGATIVE) mg/dL Urine Occult Blood Negative (NEGATIVE) Urine Nitrite Negative (NEGATIVE) Urine Bilirubin Small H (NEGATIVE) Urine Urobilinogen 0.2 (0.2) EU/dL Ur Leukocyte Esterase Negative (NEGATIVE) U Hyaline Cast (Auto) Rare Urine RBC 0-5 (NOT SEEN) /HPF Urine WBC 0-5 (NOT SEEN) /HPF Ur Squamous Epith Cells Rare (NEGATIVE) /HPF Urine Bacteria Not seen (NEGATIVE) /HPF Urine Mucus Moderate H (NEGATIVE) /LPF Meds: Medications Discontinued Medications Generic Name Dose Route Start Last Admin Trade Name Freq PRN Reason Stop Dose Admin Hydrocodone Bitart/Acetaminophen 1 tab 04/18/20 21:39 04/18/20 22:06 [place] 325-5 Mg PO 04/18/20 21:40 1 tab ONETIME ONE Administration - Radiology Interpretation Free Text/Narrative:: XR Lumbar Spine=neg XR Thoracic Spine=neg Departure - Departure Time of Disposition: 22:37 Disposition: Home, Self-Care 01 Condition: Good Clinical Impression: Weakness Back pain Qualifiers: Back pain location: low back pain Chronicity: unspecified Back pain laterality: midline Sciatica presence: without sciatica Qualified Code(s): M54.5 - Low back pain Fall Qualifiers: Encounter type: initial encounter Qualified Code(s): W19.XXXA - Unspecified fall, initial encounter - Discharge Information Referrals: Heather Springer MD [Primary Care Provider] - Forms: ED Department Discharge Additional Instructions: -Acetaminophen as needed for pain -Resume homes -Follow up with your PCP for recheck and PT referral as needed - My Orders Last 24 Hours: My Active Orders 04/18/20 20:44 EKG Documentation Completion [RC] STAT Lumbar Spine 2 or 3V [CR] Stat Thoracic Spine 2V [CR] Stat - Assessment/Plan Last 24 Hours: My Active Orders 04/18/20 20:44 EKG Documentation Completion [RC] STAT Lumbar Spine 2 or 3V [CR] Stat Thoracic Spine 2V [CR] Stat
--- NOTE | 2020-04-19 08:41 | CR ---
[id number] RAD/RAD Lumbar Spine 2-3V EXAM: RAD Lumbar Spine 2-3V INDICATION: BACK PAIN, FALL 2 DAYS AGO. COMPARISON: None. DISCUSSION: Osteopenia. Mild convex left curvature centered in the lumbar spine, the vertebral bodies are otherwise normal in height and alignment with no fracture identified. Moderate disc degeneration at L5-S1 with mild to moderate changes at the remaining disc levels. Diffuse facet arthropathy. Incidentally noted gaseous distention of small and large bowel loops. Nonspecific calcification in the right pelvis measuring about 33 mm in diameter. IMPRESSION: 1. No acute osseous abnormality. 2. Moderate lumbar spondylosis. Miguelangel Caba MD 04/19/20 0840 Thank you for allowing us to participate in the care of your patient.
--- NOTE | 2020-04-19 08:43 | CR ---
[id number] RAD/RAD Thoracic Spine 2V EXAM: RAD Thoracic Spine 2V INDICATION: BACK PAIN, FALL 2 DAYS AGO. COMPARISON: None. DISCUSSION: Mild convex right curvature centered at T5-T6. The vertebral bodies are otherwise normal in height and alignment with no fracture identified. Osteopenia throughout the thoracic spine and overlying structures in the upper thoracic spine limit sensitivity. Mild to moderate thoracic spondylosis. IMPRESSION: 1. Mild to moderate thoracic spondylosis. 2. No acute findings. Miguelangel Caba MD 04/19/20 0842 Thank you for allowing us to participate in the care of your patient.
== END 2020-04-18 22:48 | disposition home or self-care (01) ==
LOC: VM.ED 19:54 → SUPCPDRO 19:54 → VM.ED 22:48
DX: M54.5 Low back pain (principal); R53.1 Weakness; I48.91 Unspecified atrial fibrillation; I50.9 Heart failure, unspecified; G62.9 Polyneuropathy, unspecified; M19.90 Unspecified osteoarthritis, unspecified site; Z88.1 Allergy status to other antibiotic agents; Z88.2 Allergy status to sulfonamides; Z79.82 Long term (current) use of aspirin
CPT/HCPCS: 36415; 72070; 72100; 80053; 81001; 85025; 99284; A9270; 93010

== ENCOUNTER 2020-12-27 01:21 | Emergency (ER) | payer MEDICARE, OTHER ==
[2020-12-27 01:57] VITALS: BP 132/79; PULSE 80
[2020-12-27] MEDS ORDERED: Diphtheria,Pertussis(Acell),Tetanus Vaccine 0.5 ML Syringe IM ONE (02:00)
--- NOTE | 2020-12-27 03:54 | EDM.PDOC ---
ED HPI GENERAL MEDICAL PROBLEM - General Chief Complaint: General Stated Complaint: Fall, abrasion forehead, recent L3 fx Time Seen by Provider: 12/27/20 01:35 Source of Information: Reports: Patient, Family History Limitations: Reports: No Limitations - History of Present Illness INITIAL COMMENTS - FREE TEXT/NARRATIVE: Patient comes emergency department today from home by ambulance today with concerns of a fall while he is at home. This patient just a couple of weeks [facility] and he fell landing on his buttocks. Initially had no pain. He was seen in the clinic after 2 days when he developed lower back pain and was subsequently diagnosed with an anterior wedge compression fracture of the L3 vertebrae. He has been working with physical therapy and Occupational Therapy at home and home health. He has been taking Tylenol for pain. He is supposed to be using his walker and asking for assistance when he gets up but he has not been doing this on a regular basis. Tonight he was sleeping in the chair when he got up to use the urinal. He lost his balance and fell forward striking his head on the ground. He did not use his call light to ask for his family members to help him when he was going to the bathroom. Patient denies any loss conscious. He has no headache. No diplopia or blurred vision. No neck pain. He actually denies back pain as well. He denies any paresthesias of the upper or lower extremities. He denies any change in the functionality of his upper or lower extremities. This sounds like a mechanical type fall. He had no chest pain weakness dizziness lightheadedness palpitations or vertigo prior to his fall. He is not on any anticoagulants. Treatments BACKWINDER: Reports: Acetaminophen low back Pain Score (Numeric/FACES): 5 - Related Data Allergies Allergy/AdvReac Type Severity Reaction Status Date / Time amoxicillin [From Augmentin] AdvReac Diarrhea Verified 12/27/20 01:56 clavulanic acid AdvReac Diarrhea Verified 12/27/20 01:56 [From Augmentin] sulfamethoxazole AdvReac Chills Verified 12/27/20 01:56 [From Bactrim] trimethoprim [From Bactrim] AdvReac Chills Verified 12/27/20 01:56 Home Meds: Home Meds Aspirin [Low Dose Aspirin EC] 81 mg PO DAILY 09/14/16 [History] Krill/[place]-3/Dha/Epa/Lipids [Krill Oil 300 mg Softgel] 1 cap PO DAILY 03/14/19 [History] Acetaminophen [Tylenol Extra Strength] 500 mg PO Q4HR PRN 12/27/20 [History] Mirtazapine [Remeron] 15 mg PO BEDTIME 12/27/20 [History] Past Medical History HEENT History: Reports: None Cardiovascular History: Reports: Afib, Heart Failure, Other (See Below) Other Cardiovascular History: MITRAL INSUFFICIENCY. ATRIAL FLUTTER Respiratory History: Reports: None Gastrointestinal History: Reports: Diverticulosis, Other (See Below) Other Gastrointestinal History: DIARRHEA IN OCTOBER 2015 FOR 3 WEEKS Genitourinary History: Reports: Prostate Disorder, Other (See Below) Other Genitourinary History: HYPOGONADISM Musculoskeletal History: Reports: Arthritis Neurological History: Reports: Neuropathy, Peripheral Psychiatric History: Reports: None Endocrine/Metabolic History: Reports: None Hematologic History: Reports: Anemia Immunologic History: Reports: None Oncologic (Cancer) History: Reports: Hodgkin's Lymphoma, Lymphoma Other Oncologic History: 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), HAD CHEMO FOR IT Dermatologic History: Reports: None - Past Surgical History HEENT Surgical History: Reports: Cataract Surgery Cardiovascular Surgical History: Reports: Cardiac Ablation Other Cardiovascular Surgeries/Procedures: Ablation 4-5 years ago - Dr. 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 ED EXAM, GENERAL - Physical Exam Exam: See Below Exam Limited By: No Limitations General Appearance: Alert, WD/WN, No Apparent Distress Eye Exam: Bilateral Eye: EOMI, PERRL Ears: Normal External Exam, Normal Canal, Normal TMs Nose: Normal Inspection Throat/Mouth: Normal Inspection Head: Normocephalic. No: Atraumatic (There is a very small very superficial abrasion in the mid upper forehead just into the hairline. There is no bruising swelling ecchymosis tenderness bony deformity step-off or crepitus. The rest of the head is atraumatic.) Neck: Normal Inspection, Supple, Non-Tender, Full Range of Motion Respiratory/Chest: No Respiratory Distress, Lungs Clear, Normal Breath Sounds, No Accessory Muscle Use, Chest Non-Tender Cardiovascular: Normal Peripheral Pulses, Regular Rate, Rhythm, No Murmur Peripheral Pulses: 2+: Radial (L), Radial (R), Posterior Tibial (L), Posterior Tibial (R), Dorsalis Pedis (L), Dorsalis Pedis (R) GI/Abdominal: Normal Bowel Sounds, Soft, Non-Tender (Male) Exam: Deferred Rectal (Males) Exam: Deferred Back Exam: Normal Inspection (Palpation on the posterior midline spine does not elicit any bony deformities or step-offs. There is no bruising swelling ecchymosis or other signs of trauma to the entire to the posterior.). No: CVA Tenderness (L), CVA Tenderness (R), Paraspinal Tenderness, Vertebral Tenderness Extremities: Normal Inspection (No signs of trauma no tenderness.), Normal Range of Motion, Non-Tender, No Pedal Edema, Normal Capillary Refill Neurological: Alert, Oriented, CN II-XII Intact, Normal Cognition, Normal Reflexes, No Motor/Sensory Deficits Psychiatric: Normal Affect, Normal Mood Skin Exam: Warm, Dry, Intact, Normal Color, No Rash Lymphatic: No Adenopathy Course - Vital Signs Last Recorded V/S: Last Vital Signs Temp 97.2 F 12/27/20 01:21 Pulse 80 12/27/20 01:21 Resp 16 12/27/20 01:21 BP 132/79 12/27/20 01:21 Pulse Ox 98 12/27/20 01:21 - Orders/Labs/Meds Orders: Active Orders 24 hr Category Date Time Status Lumbar Spine 2 or 3V [CR] Stat Exams 12/27/20 01:57 Ordered Meds: Medications Discontinued Medications Generic Name Dose Route Start Last Admin Trade Name Freq PRN Reason Stop Dose Admin Diphtheria/Tetanus/Acell Pertussis 0.5 ml 12/27/20 02:00 12/27/20 02:26 Diphtheria,Pertussis(Acell),Tetanus Vaccine 0.5 Ml Syringe IM 12/27/20 02:01 0.5 ml .ONCE ONE Administration - Radiology Interpretation Free Text/Narrative:: X-ray of the lumbar spine per radiology shows an age indeterminant L3 vertebral body compression fracture approximately 50% reports new since prior exam although this was compared to the exam of 04/18/2020. Reviewing his chart and [place] On 12-11-20 he had a x-ray of the spine lumbar 2- 3 views. Compression deformity and anterior wedging of the L3 vertebral body which is age-indeterminate but is new when compared to the prior PET scan CT from 05/19/2019. Approximately 30% vertebral body height loss at L3. Further evaluation by MRI. Although he does have reported increase in the compression from 30 to 50% this is a subjective evaluation and the patient denies any pain nor does he have any pain with movement or palpation and his exam is u nremarkable. - Re-Assessments/Exams Free Text/Narrative Re-Assessment/Exam: 12/27/20 06:38 The patient denied anything for pain while he is in the emergency department. His neurological exam is unremarkable with normal reflexes in his lower extremity. Moves all extremities strong and equal to command. The x-ray that was completed here was not compared to the one that was done previously at [place]. He is asymptomatic at this time. I do not feel that he needs a head CT as it was a loss conscious he has no neurological concerns or complaints. He is not on any anticoagulants. The abrasion on his scalp is very superficial and does not need any repair. We will discharge him home with his family to continue his home health physical therapy and Occupational Therapy. He was updated on his tetanus immunization as he was due for this. Discharge directions as below are explained to the patient and his they were comfortable with this plan and their questions are answered. Departure - Departure Time of Disposition: 03:48 Disposition: Home, Self-Care 01 Clinical Impression: Scalp abrasion, non-infected Fall Qualifiers: Encounter type: initial encounter Qualified Code(s): W19.XXXA - Unspecified fall, initial encounter - Discharge Information *PRESCRIPTION DRUG MONITORING PROGRAM REVIEWED*: Not Applicable *COPY OF PRESCRIPTION DRUG MONITORING REPORT IN PATIENT JESSICA: Not Applicable Instructions: Abrasion, [id number] Referrals: PCP,None [Primary Care Provider] - Forms: ED Department Discharge Additional Instructions: Make sure and use your assistance alarm at home. Do not get up without assistance and always make sure that you have assistance and using your walker. Continue with previous medications. Continue with physical therapy at home. Wash the abrasion twice daily with soap and water. Bacitracin and bandage until healed. Return to the ED if new or worsening symptoms. Follow up with PCP as needed if any concerns. Sepsis Event Note (ED) - Evaluation Sepsis Screening Result: No Definite Risk - Focused Exam Vital Signs: Vital Signs Temp Pulse Resp BP Pulse Ox 12/27/20 01:21 97.2 F 80 16 132/79 98 - My Orders Last 24 Hours: My Active Orders 12/27/20 01:57 Lumbar Spine 2 or 3V [CR] Stat - Assessment/Plan Last 24 Hours: My Active Orders 12/27/20 01:57 Lumbar Spine 2 or 3V [CR] Stat
--- NOTE | 2020-12-27 08:03 | CR ---
[id number] RAD/RAD Lumbar Spine 2-3V EXAM: AP AND LATERAL LUMBAR SPINE. INDICATION: Trauma COMPARISON: Correlation is made with April 18, 2020 FINDINGS: A 50% wedge deformity of the L3 vertebral body is seen This is not identified previously There are degenerative changes. IMPRESSION: 50% COMPRESSION DEFORMITY OF L3 Amando Harvey MD 12/27/20 0803 Thank you for allowing us to participate in the care of your patient.
== END 2020-12-27 03:55 | disposition home or self-care (01) ==
LOC: VM.ED 01:21
DX: S00.01XA Abrasion of scalp, initial encounter (principal); I48.91 Unspecified atrial fibrillation; I50.9 Heart failure, unspecified; Z79.82 Long term (current) use of aspirin; Z79.899 Other long term (current) drug therapy; Z88.0 Allergy status to penicillin; Z88.1 Allergy status to other antibiotic agents; Z23 Encounter for immunization; W07.XXXA Fall from chair, initial encounter
CPT/HCPCS: 72100; 90471; 90715; 99284; 99284-25

== ENCOUNTER 2021-06-01 16:42 | Emergency (ER) | payer MEDICARE, OTHER | END 2021-06-01 16:45 | disposition left against medical advice (07) | LOC: VM.ED 16:42 | DX: Z53.21 Procedure and treatment not carried out due to patient leaving prior to being seen by health care provider (principal) ==